=== PATIENT | male | born 1965 | race Caucasian/White ===

== ENCOUNTER 2021-05-23 12:50 | Emergency (ER) | payer OTHER ==
[~2021-05-23] VITALS: Ht 177.8 cm; Wt 86.2 kg
[2021-05-23 13:18] LABS: HEMOGLOBIN 15.7 gm/dl (14.0-17.5); RED BLOOD COUNT 5.54 M/UL (4.20-5.50); WHITE BLOOD COUNT 6.4 K/UL (4.5-11.0)
[2021-05-23 13:56] LABS: BUN/CREATININE RATIO 28 (0-10)
[2021-05-23] MEDS ORDERED: LEVOTHYROXINE150 MC1 PO (18:26)
[2021-05-23] MEDS ORDERED: ZOFRAN ODT 4 MG4 MG PO (18:26)
== END 2021-05-23 19:30 | disposition home or self-care (01) ==
LOC: ER1 12:50
PROVIDERS: Physician Assistant
DX: Z23 Encounter for immunization (principal); U07.1 COVID-19; E03.9 Hypothyroidism, unspecified; I10 Essential (primary) hypertension; Z79.899 Other long term (current) drug therapy
CPT/HCPCS: 80053; 82550; 82553; 83874; 84439; 84443; 84484; 85025; 93005; 96374; 99285; J2405; M0243